=== PATIENT | female | born 1995 | race Caucasian/White ===

== ENCOUNTER 2017-02-18 10:15 | Outpatient (CLI) | payer MEDICAID ==
[~2017-02-18 10:15] MED LIST: MOTRIN-DPS800 MG PO; NIPPLECREAM TP; PRENATAL VIT1 TAB PO; PROAIR HFA8.5 GM IH; SYMBICORT160 MCG/6 IH
[2017-04-11] MEDS ORDERED: PERCOCET 5 DPS1 TAB PO (08:29)
[2017-04-11] MEDS ORDERED: COLACE-DPS100 MG PO (08:29)
[2017-04-11] MEDS ORDERED: FEOSOL-DPS325 MG PO (08:30)
== END 2017-02-18 13:50 | disposition home or self-care (01) ==
LOC: BC 10:15 → 2LDRP 10:15 → BC 13:50
DX: O47.03 False labor before 37 completed weeks of gestation, third trimester (principal); Z3A.36 36 weeks gestation of pregnancy

== ENCOUNTER 2017-02-25 16:10 | Outpatient (CLI) | payer MEDICAID ==
[2017-04-11] MEDS ORDERED: PERCOCET 5 DPS1 TAB PO (08:29)
[2017-04-11] MEDS ORDERED: COLACE-DPS100 MG PO (08:29)
[2017-04-11] MEDS ORDERED: FEOSOL-DPS325 MG PO (08:30)
== END 2017-02-25 19:50 | disposition home or self-care (01) ==
LOC: BC 16:10 → 2LDRP 16:10 → BC 19:50
DX: O36.8130 Decreased fetal movements, third trimester, not applicable or unspecified (principal); O47.1 False labor at or after 37 completed weeks of gestation; Z3A.37 37 weeks gestation of pregnancy

== ENCOUNTER 2017-04-07 06:10 | Inpatient (IN) | payer MEDICAID ==
[~2017-04-07] VITALS: Ht 152.4 cm; Wt 65.8 kg
--- NOTE | ~2017-04-07 | FD ---
ADMIT: 04/07/2017 RM/LOC: 227 [facility] MR#: [id number] [id number] [address] [address]AR[address] [place] [address] Final Diagnosis SEX: F AGE: 21 : 1995 CORRECTED: 04/12/2017 [facility]3 JULIANA ADMISSION DATE: 04/07/2017 DISCHARGE DATE: 04/10/2017 FINAL DIAGNOSIS: 1. A 21-year-old 3 para 3-0-0-3, status post primary low transverse section. Due to nonreassuring heart tones. 2. Nonreassuring heart tones. 3. Maternal congenital heart disease. 4. History of 2 small for gestational age infants. PROCEDURE: 1. Primary low transverse section, emergent. 2. External cephalic version. 3. Epidural placement and removal. Mohini Arce MD Resident / Ruby Hu MD / juliana JOB #: [id number] CC: Ruby Hu MD, Attending Physician Eva San MD, Family Physician CORRECTED: 04/12/2017 [facility] JULIANA
--- NOTE | ~2017-04-07 | OR ---
ADMIT: 04/07/2017 RM/LOC: 227 [facility] MR#: [id number] [id number] [address] YARED CROW[address] [place] [address] Operative/Delivery Room Report SEX: F AGE: 21 : 1995 SURGERY DATE: 04/07/2017 SURGEON: Ruby Hu MD PREOPERATIVE DIAGNOSES: 1. Intrauterine at 39-1/7th weeks' gestation. 2. Nonreassuring heart tones. POSTOPERATIVE DIAGNOSES: 1. Intrauterine at 39-1/7th weeks' gestation. 2. Nonreassuring heart tones. 3. Occiput posterior position. 4. Delivery of a viable male at 2006 hours, weighing 6 pounds 6.5 ounces with scores of 8 at 1 minute, 9 at 5 minutes. PROCEDURE: Emergent low transverse section. LACTATION SPECIALIST: Mohini Arce MD Resident ANESTHESIA: Epidural. COMPLICATIONS: None. ESTIMATED BLOOD LOSS: 700 mL. FLUIDS: Crystalloid. URINE OUTPUT: 100 mL. INDICATIONS: This is a 21-year-old female, 3, para 2, who [facility] with an intrauterine at 39-1/7th weeks' gestation in breech presentation. She was scheduled for an external cephalic version with induction if successful and if unsuccessful. She did undergo a successful external cephalic version. heart tones were reassuring throughout the course of her induction until she became to be 8 cm. At this time, she was noted to have deep variables to the 80s with good variability that did recover in between contractions. At approximately 1920 hours, heart tones were noted to be more persistently in the 80s to 90s that would intermittently for approximately 40-50 seconds at a time come up to the 100s to 110s. This did continue for approximately 20 minutes at which time, since there was no descensus with pushing, I did discuss with Yared proceeding with a section. When she stopped pushing, heart tones did return to 110s to 120s baseline with variable decelerations to the 80s with uterine contractions. She was quickly transferred to the operating room, placed in the dorsal supine position and prepped and draped in sterile fashion. DESCRIPTION OF PROCEDURE: The patient was properly identified. Informed consent was obtained. She was quickly taken to the operating room. She was ADMIT: 04/07/2017 RM/LOC: 227 [facility] MR#: [id number] [address] [place] [address] [place] [address] Operative/Delivery Room Report SEX: F AGE: 21 : 1995 prepped and draped in usual sterile fashion. Adequate anesthesia was noted, and a Pfannenstiel skin incision was made with a scalpel. This was carried through to the underlying layer of fascia. The fascia was incised in the midline, and the incision was extended laterally using the scalpel. The superior aspect of the fascia was grasped with Go clamps, elevated, and underlying rectus muscles were dissected off using blunt dissection. The rectus muscles were in the midline. The peritoneum was identified and entered bluntly. The peritoneal incision was then extended with the stretch maneuver. The bladder blade was placed. The lower uterine segment was incised in transverse fashion with a scalpel. The uterine incision was extended. The vertex was noted to be in the occiput posterior position. The was quickly delivered with the head first, followed by the anterior and posterior shoulders and remainder of the infant. The did have spontaneous cry and movement of all 4 extremities. The cord was clamped x2, and he was taken to the warmer where nursing personnel were in attendance. Cord blood and cord pH were obtained. The placenta delivered intact spontaneously with help from traction and uterine massage. The uterus was exteriorized and cleared of all clot and debris. The uterine incision was then repaired with 0 Vicryl in a running, locked fashion. Several figure-of- eight sutures were placed to obtain excellent hemostasis. The uterus was returned to the abdomen. The gutters were cleared of all clot and debris. The uterine incision was reinspected and noted to be hemostatic. The posterior aspect of the rectus fascia was made hemostatic with use of electrocautery. The rectus fascia was reapproximated with 0 Vicryl in a running, nonlocking fashion. The subcutaneous tissues were made hemostatic with use of electrocautery, they were reapproximated using 2-0 plain subcuticular edgard. Steri-Strips and a pressure dressing were applied. The patient tolerated the procedure well. Sponge, lap, needle, and instrument counts were correct. The patient was taken to recover in her Labor and Delivery suite with her infant. Ruby Hu MD/ jairo JOB #: [id number] CC: Ruby Hu, Attending Physician Eva San, Family Physician
[2017-04-11] MEDS ORDERED: COLACE-DPS100 MG PO (08:29)
[2017-04-11] MEDS ORDERED: PERCOCET 5 DPS1 TAB PO (08:29)
[2017-04-11] MEDS ORDERED: FEOSOL-DPS325 MG PO (08:30)
--- NOTE | 2017-05-03 13:29 | OR ---
ADMIT: 04/07/2017 RM/LOC: 227 [facility] MR#: [id number] [address] QU[address]OW[address]en Smith [address] [place] [address] Operative/Delivery Room Report SEX: F AGE: 21 : 1995 SURGERY DATE: 04/07/2017 SURGEON: Ruby Hu MD PREOPERATIVE DIAGNOSES: 1. Intrauterine at 39-1/7th weeks' gestation. 2. Breech presentation. POSTOPERATIVE DIAGNOSES: 1. Intrauterine at 39-1/7th weeks' gestation. 2. Vertex presentation. PROCEDURE: External cephalic version. COOK ENCHILADA: Mohini Arce MD Resident ANESTHESIA: Epidural. COMPLICATIONS: None. ESTIMATED BLOOD LOSS: None. FLUIDS: Crystalloid. INDICATIONS: This is a 21-year-old female, 3, para 2, who presented to the [facility] with an intrauterine at 39-1/7th weeks' gestation. has been complicated by history of a maternal cardiac defect that was repaired, asthma, and history of intrauterine growth restriction with her previous two pregnancies. She was seen and followed by Maternal Medicine. The fetus has demonstrated adequate growth. Her fetus was noted to be breech presentation at 36 weeks. At this time, she would like to proceed with an external cephalic version with induction if successful and if unsuccessful. The risks, benefits, and alternatives to an external cephalic version were discussed with the patient prior to proceeding and she agreed to proceed. ADMIT: 04/07/2017 RM/LOC: 227 [facility] MR#: [id number] [id number] [address] [address] CR[address] [place] [address] Operative/Delivery Room Report SEX: F AGE: 21 : 1995 DESCRIPTION OF PROCEDURE: An epidural was placed by Anesthesia. The patient was comfortable. She was placed in the dorsal supine position. Ultrasound did confirm breech presentation with the spine to the maternal right. Once the adequate epidural was noted, gentle pressure was placed on the vertex and he was rolled forward. This was fairly easy and within a couple minutes, the fetus was noted to be vertex presentation, confirmed with ultrasound. At this time, the monitors were placed on the patient's abdomen. We did place rolled towels under the monitors to try to hold the fetus in a vertex presentation. Her cervix was examined and noted to be 1.5 cm long and a -3 station. We will start Pitocin at this point, and anticipate a spontaneous vaginal delivery. Both fetus and mother tolerated the procedure well. heart tones following the procedure were reassuring. Ruby Hu MD/ jairo JOB #: [id number] CC: Ruby Hu, Attending Physician Eva San, Family Physician
--- NOTE | 2017-05-03 13:34 | HP ---
ADMIT: 04/07/2017 RM/LOC: 227 [facility] MR#: [id number] [address] [address] [address]AR[address] [place] [address] History and Physical SEX: F AGE: 21 : 1995 DATE OF SERVICE: HISTORY OF PRESENT ILLNESS: This is a 21-year-old, -0-0-2, with an intrauterine at 39 weeks 1 day via 7 weeks ultrasound who presents to Labor and Delivery for a planned external cephalic version with possible induction of labor versus possible primary low-transverse section. The patient has a that has been complicated by maternal heart disease for which she saw [facility] and was reported to have normal cardiac function. She also has a complicated by history of 2 small for gestational age infants. Today she feels well. Denies leaking of fluid, vaginal bleeding, regular contractions. She does report normal movement. Ultrasound was performed upon presentation and 's head found to be in the right upper quadrant. 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 PAST SURGICAL HISTORY: She had a left ovarian cystectomy in 2012, laparoscopy 2011, myringotomy tube replacement in 1997, dental caries repaired in 2007, open-heart surgery in 1994, sinus surgery in 1997, and complete repair of supracardiac total anomalous pulmonary venous return in 1994. MEDICATIONS: She is on: 1. Claritin. 2. Albuterol inhaler. 3. Symbicort. 4. Zofran p.r.n. 5. vitamin. ALLERGIES: SHE HAS AN ALLERGY TO ERYTHROMYCIN AND CODEINE. SOCIAL HISTORY: Father of baby is Murphy. The patient is single, however, father of baby is involved in patient's care. The patient denies tobacco use, alcohol use, recreational drug use. FAMILY HISTORY: She has a family history of bipolar disorder in her mother and maternal grandmother. Also has a history of sudden prior to the age of 50 in her maternal grandfather. PHYSICAL EXAM: VITAL SIGNS: 107/63, pulse 57, respiratory rate 16, temperature 97.7, and she is saturating 95% on room air. GENERAL: She is alert and oriented x3. She is in no acute distress. HEART: Regular rate and rhythm. LUNGS: Clear to auscultation bilaterally. ABDOMEN: Gravid with head in the right upper quadrant via Rubin maneuver and confirmed with ultrasound. ABDOMEN: Nontender to palpation. EXTREMITIES: Distal pulses 2+. No edema in bilateral lower extremities. ADMIT: 04/07/2017 RM/LOC: 227 [facility] MR#: [id number] [id number] [id number] [place], [place] [address] [address] [place] [address] History and Physical SEX: F AGE: 21 : 1995 heart tones at time of presentation baseline 120, moderate variability, positive accelerations, no decelerations. She is brigitte every 7-9 minutes on monitor, these are irregular and mildly palpable. LABS: Blood type is A positive with direct antibody testing negative. GBS negative. Hemoglobin 13.0, platelets 197. RPR negative. Rubella immune. Gonorrhea and chlamydia negative. HIV negative. Hepatitis negative. ASSESSMENT AND PLAN: 21-year-old, 3, para 2-0-0-2 with intrauterine at 39 weeks 1 day via a 7-week ultrasound who presents to Labor and delivery for external cephalic version with possible section versus possible induction of labor. 1. Admit to the birthing center for external cephalic version. CBC upon admission. Anesthesia to be notified for placement of epidural. Risks, benefits, and alternatives of external cephalic version were discussed with the patient. She wished to proceed with ECV. Risks, benefits, and alternatives of vaginal delivery, assistive vaginal delivery, or operative section were also discussed with the patient. Plan pending success of ECV. 2. GBS negative. No antibiotic prophylaxis at this time. 3. heart tones are reassuring. We will continue to monitor throughout the procedure. 4. Congenital heart disease. The patient saw Maternal- Medicine with a normal echocardiogram and normal cardiac function. No further intervention or monitoring indicated at this time. 5. Blood type is A positive. Patient will not need RhoGAM . 6. Immunizations up-to-date and documented. The patient was seen and discussed on day of procedure with Dr. Ruby Hu. Mohini Arce MD Resident / Ruby Hu MD / jairo JOB #: [id number] CC: Ruby Hu, Attending Physician Eva San, Family Physician
--- NOTE | 2017-05-03 13:34 | DS ---
ADMIT: 04/07/2017 RM/LOC: 227 [facility] MR#: [id number] [address] [address] YARED CROW[address] [place] [address] Discharge Summary SEX: F AGE: 21 : 1995 ADMISSION DATE: 04/07/2017 DISCHARGE DATE: 04/10/2017 FINAL DIAGNOSES: 1. This is a 21-year-old, -0-0-3, status post primary low transverse section at 39 weeks' one day secondary to non-reassuring heart tones. 2. External cephalic version successful on morning of 04/07/2017. 3. Non-reassuring heart tones. 4. Maternal congenital heart disease. 5. History of two previous infants which were small for gestational age. REASON FOR ADMISSION AND HOSPITAL COURSE: This is a 21-year-old, -0-0-2, with intrauterine at 39 weeks' one day who was admitted on April 07, 2017 for external cephalic version with plan for induction of labor or section pending results of the ECV. ECV was successful and patient was admitted for induction of labor. Induction was performed with Pitocin and artificial rupture of membranes. Patient progressed to complete without further augmentation. The patient was complete and expulsive efforts were begun. heart tones remained category two with expulsive efforts, with recurrent variable decelerations into the 50s and 60s. Decelerations lasted 1- 2 minutes and were slower to recover. Due to lack of descent, decision was made to proceed with primary low transverse section. The patient ultimately underwent a primary low transverse section at 39 weeks' one day and had a male , with Apgars eight and nine and a weight of 6 pounds 6.5 ounces. was found to be in the occiput posterior position upon entry into the uterus. The baby stayed at the maternal bedside following delivery and the baby's hospital course was uncomplicated. The patient's hospital course was also uncomplicated. She is both breast and bottle feeding. She is meeting discharge criteria and desires to be discharged to home today, postoperative day three. She plans on Depo-Provera injection for contraception. She was started on an iron supplement during this admission with a hemoglobin of 10.1, following the procedure. Recommended follow up with Dr. Scarlett Hu in two weeks for a wound check and in six weeks for visit. Delivery information: Delivery date 04/07/2017, delivery time 2006 hours. Infant sex male. Apgars eight and nine. Weight of 2900 grams. Cord gas arterial with a pH of 7.3. LABORATORY DATA: All labs final at the time of discharge. DISCHARGE MEDICATIONS: The patient is to be discharged to home on the following medications: 1. vitamin. 2. Percocet 5/325 p.o. q.6 hours. 3. Colace. 4. Motrin 800 mg q.8 hours p.r.n. 5. Ferrous sulfate 325 mg p.o. b.i.d. ADMIT: 04/07/2017 RM/LOC: 227 [facility] MR#: [id number] [address] [place] [address] [place] [address] Discharge Summary SEX: F AGE: 21 : 1995 6. Symbicort inhaler. 7. ProAir inhaler p.r.n. DISCHARGE INSTRUCTIONS: The patient was instructed to have pelvic rest for six weeks. Recommended no driving while on narcotics. Recommended lifting restriction of 20 pounds for six weeks. She should notify her physician with temperature greater than 100.4, if she is having brisk vaginal bleeding that soaks number one pad per hour, or if any area of her breast becomes red or painful, or if her pain is no longer controlled by pain medications. Recommended general diet as tolerated and increased fluid intake. Discussed symptoms of blues and depression and to contact us immediately should this become a concern. FOLLOWUP: Recommended follow up with Dr. Scarlett Hu in two weeks for wound check and in six weeks for visit. The patient was discussed with Dr. Allyssa aCrter and seen by attending physician on day of discharge. Mohini Arce MD Resident / Ruby Hu MD / padma JOB #: [id number] CC: Ruby Hu MD, Attending Physician Eva San MD, Family Physician
== END 2017-04-10 11:25 | disposition home or self-care (01) | DRG 766 ==
LOC: BC 06:10 → 2LDRP 06:10 → BC 04-13 08:00
PROVIDERS: ADMIT Obstetrics & Gynecology
DX: O64.0XX0 Obstructed labor due to incomplete rotation of fetal head, not applicable or unspecified (principal); D64.9 Anemia, unspecified; O32.1XX0 Maternal care for breech presentation, not applicable or unspecified; O76 Abnormality in fetal heart rate and rhythm complicating labor and delivery; O99.52 Diseases of the respiratory system complicating childbirth; J45.909 Unspecified asthma, uncomplicated; O90.81 Anemia of the puerperium; Z3A.39 39 weeks gestation of pregnancy; Z37.0 Single live birth